=== PATIENT | female | born 1930 | race Caucasian/White ===

== ENCOUNTER 2017-08-29 18:11 | Emergency (ER) | payer OTHER ==
[2017-08-29 18:15] VITALS: BP 207/88; BMI 25.8
[2017-08-29] MEDS ORDERED: DILAUDID INJ IM ONE (18:15)
[2017-08-29] MEDS ORDERED: DILAUDID INJ ONE (18:18)
--- NOTE | 2017-08-29 18:20 | DR.HI ---
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 LARGE HEMATOMA NOTED TO LEFT BACK SIDE OF HEAD WITH TWO SMALL AREAS THAT ARE BLEEDING. PT. DENIES LOC. Chief Complaint Doctors Comments: Patient fell backward hitting the edge of the table. She did not have LOC,vomiting of dizziness - Source History Provided: Patient - Mode of arrival Mode of Arrival: Wheelchair - Timing Onset of Chief Complaint: 08/29/17 PMH - PMH Past Medical History: Yes Past Medical History: Arthritis, CHF, Depression, Dyslipidemia, Hypertension, Hypothyroidism, Kidney Stones Past Surgical History: Yes Surgical History: Abdominal Surgery, Appendectomy, Ortho Surgery - Family History History of Family Medical Conditions: Yes Family Medical History: Coronary Artery Disease, Sudden Cardiac , Hypertension - Social History Does patient currently use any type of tobacco product: No Have you used tobacco products in the last 12 months: No Type of Tobacco Use: None Does any household member use tobacco: No Alcohol Use: None Do you use any recreational Drugs:: No Lives With: Spouse Lives Where: Home - infectious screening In the last 2 months have you had wt loss of >10#?: NO Have you had fever, night sweats or hemotysis?: No Have you traveled outside the country in the last 6 months?: No Isolation: Standard ROS - Review of Systems Constitutional: No Symptoms Reported Eyes: No Symptoms Reported, See HPI, Eye Pain. negative: Blurred Vision, Discharge, Photophobia ENTM: No Symptoms Reported. negative: Ear Discharge, Hearing Loss, Nose Pain, Nose Discharge, Nose Congestion Respiratoy: No Symptoms Reported Cardiovascular: No Symptoms Reported Gastrointestinal/Abdominal: No Symptoms Reported Genitourinary: No Symptoms Reported Neurological: No Symptoms Reported Musculoskeletal: No Symptoms Reported, Other (scalp with abrasions occipital area) Integumentary: Bruises (left occipital area of scalp) Hematologic/Lymphatic: No Symptoms Reported Endocrine: No Symptoms Reported Psychiatric: No Symptoms Reported All Other Systems: Reviewed and Negative PE - Vital Signs Vitals: Temperature 97.8 F Pulse Rate 72 Respiratory Rate 18 Blood Pressure [Left Arm] 175/83 Blood Pressure [Right Arm] 181/79 Blood Pressure 207/88 O2 Sat by Pulse Oximetry 96 - General Limitations: No Limitations General Appearance: Alert, In No Apparent Distress - Head Head Exam: Other (left occipital acrasion x3) - Eyes Eye exam: Normal Appearance, PERRL, EOMI Eyelids: Normal Inspection: Bilateral Pupils: Regular, Round: Bilateral Sclera/Conjunctival: Normal Inspection: Bilateral - ENT ENT Exam: Normal Exam, Normal Oropharynx Nose Exam: Normal Nose Exam Mouth Exam: Normal Inspection - Neck Neck Exam: Normal Inspection, Full ROM. negative: Tenderness - Respiratory Respiratory Exam: Normal Lung Sounds Bilat Respiratory Exam: Bilateral Clear to Auscultation - Cardiovascular Cardiovascular Exam: Regular Rate, Normal Rhythm - Abdominal Exam Abdominal Exam: Normal Inspection Abdominal Tenderness: negative: RUQ, RLQ, LUQ, LLQ, Epigastrium, Suprapubic, Diffuse, Mild, Moderate, Severe, Other - Extremities Extremities Exam: Normal Inspection - Back Back Exam: Normal Inspection, Full ROM - Neurologic Neurological Exam: Alert, Oriented X3, CN II-XII Intact - Psychiatric Psychiatric Exam: Normal Affect, Normal Mood - Skin Skin Exam: Warm, Dry, Intact Type of Lesion: Abrasion (left occipital area) Distribution: Head Course - Reevaluation 1st: Improved ROR - XRAY XRAY Interpreted by: Radiologist (Brain CT: Changes of advancing chronological age w/o acute intracranial abnormality. Chronic appearing white matter neulogicical changes. Posttraumatic extracranial soft tissue laceration and hematoma involving [id number] region w/o underlying calvarial fracture) Procedures - Laceration/Wound Repair Left Occipital Wound Length (cm): 1 Wound's Depth, Shape: Superficial, Irregular Wound Explored: no foreign body removed Betadine Prep?: Yes Wound Debrided: minimal Wound Repaired With: Dermabond - Diagnosis Discharge Problem: Scalp abrasion Qualifiers: Encounter type: initial encounter Qualified Code(s): S00.01XA - Abrasion of scalp, initial encounter Left parietal scalp hematoma Qualifiers: Encounter type: initial encounter Qualified Code(s): S00.03XA - Contusion of scalp, initial encounter - Discharge Plan Condition: Stable - Follow ups/Referrals Follow ups/Referrals: Vu Jones [Primary Care Provider] - 3 days - Instructions
--- NOTE | 2017-08-29 18:52 | CT ---
History: Posterior head injury after fall. Study: CT brain without contrast. Comparison: None. Technique: Multiple axial images of the brain were obtained from the skull base to the vertex without administra tion of IV contrast. Findings: There is moderate ventricular, as well as, sulcal and cisternal prominence, in addition to , atherosclerotic changes of the proximal intracranial carotid and vertebral arteries, which is not o ut of proportion to the patient's chronological age. Scattered and confluent areas of periventricular , deep and subcortical white matter hypoattenuation are noted bilaterally likely reflecting ischemic microangiopathy in a patient this age. No acute intraparenchymal hemorrhage or mass can be identified . No extra-axial fluid collections are seen. No alteration in the attenuation of the brain parenchy ma can be identified to suggest acute or subacute ischemic change. There is a posterior scalp lacerat ion with partial visualization of an associated extracranial soft tissue hematoma in the left parieta l-occipital region. The calvarium is grossly intact. IMPRESSION: 1. Changes of advancing chronological age without acute intracranial abnormality. 2. Chronic appearing white matter changes. 3. Posttraumatic extracranial soft tissue laceration and hematoma involving the left parieto-occipita l region without underlying calvarial fracture. Reported By:
== END 2017-08-29 19:56 | disposition home or self-care (01) ==
LOC: ER 18:11
PROC: 0WQ0XZZ Repair Head, External Approach (ICD-10-PCS; principal; 2017-08-29)
DX: S00.01XA Abrasion of scalp, initial encounter (principal); S00.03XA Contusion of scalp, initial encounter; W01.198A Fall on same level from slipping, tripping and stumbling with subsequent striking against other object, initial encounter; Y92.9 Unspecified place or not applicable
CPT/HCPCS: 12001; 70450; 96372; 99282; 99283

== ENCOUNTER 2017-11-29 10:32 | Emergency (ER) | payer OTHER ==
[2017-11-29 10:37] VITALS: BP 131/60; BMI 25.5
--- NOTE | 2017-11-29 12:26 | DR.EXTPAIN ---
HPI - Time seen Time seen: 12:25 - PCP Primary Care Physician: rosie - Complaint/Symptoms Chief Complaint Doctor Comments: Patient presents with complaint of pain of her left foot which she injured on yesterday when at home. Today the foot is swollen and painful. Chief Complaint:: pt stated she fell inside her home yesterday and is having left foot pain. redness and edma noted - Source History Provided: Patient - Mode of arrival Mode of Arrival: Wheelchair - Timing Onset of Chief Complaint: 11/28/17 PMH - PMH Past Medical History: Yes Past Medical History: Arthritis, CHF, Depression, Dyslipidemia, Hypertension, Hypothyroidism, Kidney Stones Past Surgical History: Yes Surgical History: Abdominal Surgery, Appendectomy, Ortho Surgery - Family History History of Family Medical Conditions: Yes Family Medical History: Coronary Artery Disease, Sudden Cardiac , Hypertension - Social History Does patient currently use any type of tobacco product: No Have you used tobacco products in the last 12 months: No Type of Tobacco Use: None Does any household member use tobacco: No Alcohol Use: None Do you use any recreational Drugs:: No Lives With: Family Lives Where: Home - infectious screening In the last 2 months have you had wt loss of >10#?: NO Have you had fever, night sweats or hemotysis?: No Have you traveled outside the country in the last 6 months?: No Isolation: Standard ROS - Review of Systems Eyes: No Symptoms Reported ENTM: No Symptoms Reported Respiratoy: No Symptoms Reported Cardiovascular: No Symptoms Reported Gastrointestinal/Abdominal: No Symptoms Reported Genitourinary: No Symptoms Reported Neurological: No Symptoms Reported Musculoskeletal: Foot (left) Integumentary: No Symptoms Reported Hematologic/Lymphatic: No Symptoms Reported Endocrine: No Symptoms Reported Psychiatric: No Symptoms Reported All Other Systems: Reviewed and Negative PE - Vital Signs Vitals: Temperature 98.7 F Pulse Rate 70 Respiratory Rate 16 Blood Pressure [Left Arm] 175/83 Blood Pressure [Right Arm] 181/79 Blood Pressure 131/60 O2 Sat by Pulse Oximetry 98 - General Limitations: No Limitations General Appearance: Alert, In No Apparent Distress - Head Head Exam: Normal Inspection, Atraumatic - Eyes Eye exam: Normal Appearance, PERRL, EOMI - ENT ENT Exam: Normal Exam - Neck Neck Exam: Normal Inspection, Full ROM - Chest Chest Inspection: Normal Inspection - Respiratory Respiratory Exam: Normal Lung Sounds Bilat Respiratory Exam: Bilateral Clear to Auscultation - Cardiovascular Cardiovascular Exam: Regular Rate, Normal Rhythm - Abdominal Exam Abdominal Exam: Normal Inspection, Normal Bowel Sounds Abdominal Tenderness: negative: RUQ, RLQ, LUQ, LLQ, Epigastrium, Suprapubic, Diffuse, Mild, Moderate, Severe, Other - Extremities Extremities Exam: Normal Inspection, Full ROM - Upper Extremities Shoulder Exam: Normal Inspection, Full ROM Arm Exam: Normal Inspection Elbow Exam: Normal Inspection Forearm Exam: Normal Inspection Hand Exam: Normal Inspection Neuromotor Exam: Normal Exam Neurosensory Exam: Normal Exam Hand Tendon Exam: Flexor Digitorium Profundus (Location), Flexor Digitorium Superficialis (Location), Extensor Tendon (Location) Upper Ext. Vascular Exam: Capillary Refill - Lower Extremities Hip/Pelvis Exam: Normal Inspection, Full ROM Upper Leg Exam: Normal Inspection Knee Exam: Normal Inspection Lower Leg Exam: Normal Inspection Ankle Exam: Normal Inspection Foot/Toe Exam: Tenderness, Swelling, Dislocation (left foot) Neurovascular/Tendon Exam: Normal Capillary Refill Gait Exam: Not Tested/Not Observed - Back Back Exam: Normal Inspection, Full ROM - Neurological Neurological Exam: Alert, Oriented X3, CN II-XII Intact - Psychiatric Psychiatric Exam: Normal Affect, Normal Mood - Skin Skin Exam: Warm, Dry, Intact Course - Reevaluation 1st: Unchanged ROR - XRAY XRAY Interpreted by: Radiologist ([place] foot: Degenerative change in the left foot, no acute bony abnormalities are identified.) - Diagnosis Discharge Problem: Degenerative change in left foot Sprain of left foot Qualifiers: Encounter type: initial encounter Qualified Code(s): S93.602A - Unspecified sprain of left foot, initial encounter - Discharge Plan Condition: Stable - Follow ups/Referrals Follow ups/Referrals: Vu Jones [Primary Care Provider] - 3 days - Instructions
--- NOTE | 2017-11-29 13:21 | RAD ---
HISTORY: Status post fall. Bruising and swelling. Study: Left foot: Three views Comparison: None Findings: Tarsal, metatarsal and phalangeal alignment is normal. Fzad-ja-drsqtehu osteopenia is present. Mild degenerative change present in the 1st metatarsal-phalangeal joint. Bunion formation is noted. An os navicularis and os cuboideum is present. Mild enthesopathy is noted at the Achilles tendon insert ion. Minimal degenerative changes present in the midfoot. The base of the 5th metatarsal is intact. IMPRESSION: 1. Degenerative change in the left foot as described above. 2. No acute bony abnormalities are identified. Reported By:
== END 2017-11-29 14:03 | disposition home or self-care (01) ==
LOC: ER 10:43
DX: S93.602A Unspecified sprain of left foot, initial encounter (principal); M19.072 Primary osteoarthritis, left ankle and foot; W19.XXXA Unspecified fall, initial encounter; Y92.009 Unspecified place in unspecified non-institutional (private) residence as the place of occurrence of the external cause
CPT/HCPCS: 73630; 99282; 99283

== ENCOUNTER 2018-03-10 09:38 | Inpatient (IN) ==
[2018-03-10 09:54] VITALS: BMI 28.2
[2018-03-10 10:35] LABS: BASOPHILS % (AUTO) 0.3 % (0.2-1.0); EOSINOPHILS # (AUTO) 0.3 x10^3/uL (0.0-0.2); EOSINOPHILS % (AUTO) 2.3 % (0.9-2.9); HEMATOCRIT 27.4 % (36.0-47.0); HEMOGLOBIN 9.2 g/dL (12.0-16.0); LYMPHOCYTES # (AUTO) 1.1 X10^3/uL (1.3-2.9); LYMPHOCYTES % (AUTO) 9.4 % (21.0-51.0); MEAN CORPUSCULAR HEMOGLOBIN 30.9 pg (27.0-34.0); MEAN CORPUSCULAR HGB CONC 33.5 g/dL (33.0-35.0); MEAN CORPUSCULAR VOLUME 92.1 fL (80.0-100.0); MEAN PLATELET VOLUME 6.7 fL (7.4-11.0); MONOCYTES # (AUTO) 0.8 x10^3/uL (0.3-0.8); NEUTROPHILS # (AUTO) 9.8 x10^3/uL (2.2-4.8); PLATELET COUNT 448 X10^3/uL (150.0-450.0); RED BLOOD COUNT 2.98 X10^6/uL (3.5-5.4); RED CELL DISTRIBUTION WIDTH 13.9 % (11.6-16.5); WHITE BLOOD COUNT 12.1 X10^3/uL (3.6-10.0)
[2018-03-10 10:46] LABS: ALBUMIN 2.3 g/dL (3.4-5.0); CALCIUM 8.7 mg/dL (8.5-10.1); CARBON DIOXIDE 25.1 mmol/L (21-32); COR CA(FOR HYPOALB) 10.1 mg/dL (8.5-10.1); CREATININE 1.96 mg/dL (0.55-1.02); TOTAL PROTEIN 6.8 g/dL (6.4-8.2)
--- NOTE | 2018-03-10 11:14 | ED.ABDFE ---
HPI Time Seen Time seen: 10:10 PCP Primary Care Physician: rosie Rapp Doctors Chief Complaint Comments: Patient presents with complaint of falling more frequently than before and that her stomach in swollen more than usual. She had a peritoneal tap last week and they will get the results later on today. Chief Complaint:: pts abd is swollen and distended more so today per family than the past week. pt has a appointment with dr gann today at 130 today to consult for possible colon cancer. Source History Provided: Patient Mode of arrival Mode of Arrival: EMS Timing Onset of Chief Complaint: 03/09/18 PMH PMH Past Medical History: Yes Past Medical History: Arthritis, CHF, Depression, Dyslipidemia, Hypertension, Hypothyroidism and Kidney Stones Past Surgical History: Yes Surgical History: Abdominal Surgery, Appendectomy and Ortho Surgery Family History History of Family Medical Conditions: Yes Family Medical History: Coronary Artery Disease, Sudden Cardiac and Hypertension Social History Does patient currently use any type of tobacco product: No Have you used tobacco products in the last 12 months: No Type of Tobacco Use: None Does any household member use tobacco: No Alcohol Use: None Do you use any recreational Drugs:: No Lives With: Family Lives Where: Home infectious screening In the last 2 months have you had wt loss of >10#?: NO Have you had fever, night sweats or hemotysis?: No Have you traveled outside the country in the last 6 months?: No Isolation: Standard PE Vital Signs Vitals: Temperature 98.7 F Pulse Rate 94 Respiratory Rate 16 Blood Pressure [Left Arm] 170/76 Blood Pressure [Right Arm] 184/71 Blood Pressure 165/95 O2 Sat by Pulse Oximetry 93 ROR Labs Reviewed Result Diagrams: 03/10/18 10:27 03/10/18 10:27 Laboratory: WBC 12.1 X10^3/uL (3.6-10.0) H 03/10/18 10: RBC 2.98 X10^6/uL (3.5-5.4) L 03/10/18 10:27 Hgb 9.2 g/dL (12.0-16.0) L 03/10/18 10:27 Hct 27.4 % (36.0-47.0) L 03/10/18 10:27 MCV 92.1 fL (80.0-100.0) 03/10/18 10: MCH 30.9 pg (27.0-34.0) 03/10/18 10:27 MCHC 33.5 g/dL (33.0-35.0) 03/10/18 10:27 RDW 13.9 % (11.6-16.5) 03/10/18 10:27 Plt Count 448 X10^3/uL (150.0-450.0) 03/10/18 10:27 MPV 6.7 fL (7.4-11.0) L 03/10/18 10:27 Neut % (Auto) 81.0 % (42.0-75.0) H 03/10/18 10:27 Lymph % (Auto) 9.4 % (21.0-51.0) L 03/10/18 10:27 [place] % (Auto) 7.0 % (0.0-13.0) 03/10/18 10: Eos % (Auto) 2.3 % (0.9-2.9) 03/10/18 10:27 Baso % (Auto) 0.3 % (0.2-1.0) 03/10/18 10:27 Neut # (Auto) 9.8 x10^3/uL (2.2-4.8) H 03/10/18 10:27 Lymph # (Auto) 1.1 X10^3/uL (1.3-2.9) L 03/10/18 10:27 [place] # (Auto) 0.8 x10^3/uL (0.3-0.8) 03/10/18 10:27 Eos # (Auto) 0.3 x10^3/uL (0.0-0.2) H 03/10/18 10:27 Baso # (Auto) 0.0 X10^3/uL (0.0-0.1) 03/10/18 10:27 Absolute Nucleated RBC 0.0 /100WBC 03/10/18 10:27 Sodium 136 mmol/L (136-145) 03/10/18 10:27 Corrected Sodium 137 mmol/L (136-145) 03/10/18 10:27 Potassium 4.9 mmol/L (3.5-5.1) 03/10/18 10:27 Chloride 104 mmol/L (98-107) 03/10/18 10:27 Carbon Dioxide 25.1 mmol/L (21-32) 03/10/18 10:27 BUN 31 mg/dL (7-18) H 03/10/18 10:27 Creatinine 1.96 mg/dL (0.55-1.02) H 03/10/18 10:27 Est GFR (MDRD) Af Amer 31 (>60) L 03/10/18 10:27 Est GFR (MDRD) Non-Af 26 (>60) L 03/10/18 10:27 Glucose 128 mg/dL (65-99) H 03/10/18 10:27 Calcium 8.7 mg/dL (8.5-10.1) 03/10/18 10:27 Corrected Calcium 10.1 mg/dL (8.5-10.1) 03/10/18 10:27 Total Bilirubin 0.10 mg/dL (0.2-1.0) L 03/10/18 10:27 AST 45 Units/L (15-37) H 03/10/18 10:27 ALT 19 Units/L (12-78) 03/10/18 10:27 Alkaline Phosphatase 58 Units/L (46-116) 03/10/18 10:27 C-Reactive Protein 109.10 mg/L (0-3.0) H 03/10/18 10:27 Total Protein 6.8 g/dL (6.4-8.2) 03/10/18 10:27 Albumin 2.3 g/dL (3.4-5.0) L 03/10/18 10:27 Globulin 4.5 g/dL (2.5-4.5) 03/10/18 10:27 Albumin/Globulin Ratio 0.5 Ratio (1.1-2.1) L 03/10/18 10:27
[2018-03-10] MEDS: NS 1000 ML 1,000 ML IV SCH (11:46)
--- NOTE | 2018-03-10 12:58 | CT ---
History: Frequent falls and altered mental status Study: CT head without contrast. Sagittal and coronal reformations were provided. Comparison: February 10, 2018 Findings: There is no interval change. The ventricles and sulci are [id number] enlarged witho ut mass effect. There is moderate to severe periventricular white-matter low attenuation diffusely. T here is no intracranial hemorrhage or mass or edema. There is no subdural collection of fluid. The pa ranasal sinuses are clear. There is an intact cranium. 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 No acute disease is demonstr ated. Reported By:
--- NOTE | 2018-03-10 13:22 | ED.ABDFE ---
HPI Time Seen Time seen: 10:38 PCP Primary Care Physician: rosie Complaint Chief Complaint:: pts abd is swollen and distended more so today per family than the past week. pt has a appointment with dr gann today at 130 today to consult for possible colon cancer. Source History Provided: Patient Mode of arrival Mode of Arrival: EMS Timing Onset of Chief Complaint: 03/09/18 PMH PMH Past Medical History: Yes Past Medical History: Arthritis, CHF, Depression, Dyslipidemia, Hypertension, Hypothyroidism and Kidney Stones Past Surgical History: Yes Surgical History: Abdominal Surgery, Appendectomy and Ortho Surgery Family History History of Family Medical Conditions: Yes Family Medical History: Coronary Artery Disease, Sudden Cardiac and Hypertension Social History Does patient currently use any type of tobacco product: No Have you used tobacco products in the last 12 months: No Type of Tobacco Use: None Does any household member use tobacco: No Alcohol Use: None Do you use any recreational Drugs:: No Lives With: Family Lives Where: Home infectious screening In the last 2 months have you had wt loss of >10#?: NO Have you had fever, night sweats or hemotysis?: No Have you traveled outside the country in the last 6 months?: No Isolation: Standard ROS Review of Systems Constitutional: See HPI Eyes: No Symptoms Reported ENTM: No Symptoms Reported Respiratoy: See HPI Gastrointestinal/Abdominal: Abdominal Pain (increased in fluid content) Neurological: Weakness Musculoskeletal: See HPI Integumentary: No Symptoms Reported PE Vital Signs Vitals: Temperature 97.9 F Pulse Rate [Left Brachial] 84 Pulse Rate 94 Respiratory Rate 18 Blood Pressure [Left Arm] 156/70 Blood Pressure [Right Arm] 184/71 Blood Pressure 165/95 O2 Sat by Pulse Oximetry 93 General Limitations: Language Barrier and Altered Mental Status General Appearance: In No Apparent Distress Head Head Exam: Atraumatic and Normocephalic Eyes Eye exam: Normal Appearance and EOMI ENT ENT Exam: Mucous Membranes Dry Neck Neck Exam: Normal Inspection and Full ROM Chest Chest Inspection: Normal Inspection and Symmetric Chest Wall Rise Respiratory Respiratory Exam: Normal Lung Sounds Bilat Respiratory Exam: Bilateral: Clear to Auscultation Cardiovascular Cardiovascular Exam: Regular Rate and Normal Rhythm Abdominal Exam Abdominal Exam: Normal Inspection, Normal Bowel Sounds, Distention and Hypoactive Bowel Sounds Abdominal Tenderness: Mild Rectal Rectal Exam: Deferred Extremeties Extremities Exam: Normal Inspection : Speculum Exam (Female): Deferred : Bimanual Exam (female): Deferred Neurologic Neurological Exam: Alert Psychiatric Psychiatric Exam: Depressed Skin Skin Exam: Warm, Dry, Intact and Normal Color COURSE Reevaluation 1st: Unchanged Consultation Called: 13:00 Consultation Comments: Dr Jones agreed to admit for further evaluation and treatment ROR Labs Reviewed Result Diagrams: 03/11/18 05:17 03/11/18 05:17 Laboratory: WBC 11.2 X10^3/uL (3.6-10.0) H 03/11/18 05:17 RBC 2.95 X10^6/uL (3.5-5.4) L 03/11/18 05:17 Hgb 9.2 g/dL (12.0-16.0) L 03/11/18 05:17 Hct 27.1 % (36.0-47.0) L 03/11/18 05:17 MCV 92.0 fL (80.0-100.0) 03/11/18 05:17 MCH 31.3 pg (27.0-34.0) 03/11/18 05:17 MCHC 34.0 g/dL (33.0-35.0) 03/11/18 05:17 RDW 13.8 % (11.6-16.5) 03/11/18 05:17 Plt Count 462 X10^3/uL (150.0-450.0) H 03/11/18 05:17 MPV 7.3 fL (7.4-11.0) L 03/11/18 05:17 Neut % (Auto) 74.5 % (42.0-75.0) 03/11/18 05:17 Lymph % (Auto) 12.6 % (21.0-51.0) L 03/11/18 05:17 [place] % (Auto) 9.3 % (0.0-13.0) 03/11/18 05:17 Eos % (Auto) 2.8 % (0.9-2.9) 03/11/18 05:17 Baso % (Auto) 0.8 % (0.2-1.0) 03/11/18 05:17 Neut # (Auto) 8.3 x10^3/uL (2.2-4.8) H 03/11/18 05:17 Lymph # (Auto) 1.4 X10^3/uL (1.3-2.9) 03/11/18 05:17 [place] # (Auto) 1.0 x10^3/uL (0.3-0.8) H 03/11/18 05:17 Eos # (Auto) 0.3 x10^3/uL (0.0-0.2) H 03/11/18 05:17 Baso # (Auto) 0.1 X10^3/uL (0.0-0.1) 03/11/18 05:17 Absolute Nucleated RBC 0.1 /100WBC 03/11/18 05:17 D-Dimer 4220 ng/mL (0-400) H* 03/10/18 10:27 Sodium 137 mmol/L (136-145) 03/11/18 05:17 Corrected Sodium TNP 03/11/18 05:17 Potassium 4.6 mmol/L (3.5-5.1) 03/11/18 05:17 Chloride 105 mmol/L (98-107) 03/11/18 05:17 Carbon Dioxide 25.7 mmol/L (21-32) 03/11/18 05:17 BUN 25 mg/dL (7-18) H 03/11/18 05:17 Creatinine 1.43 mg/dL (0.55-1.02) H 03/11/18 05:17 Est GFR (MDRD) Af Amer 45 (>60) L 03/11/18 05:17 Est GFR (MDRD) Non-Af 37 (>60) L 03/11/18 05:17 Glucose 104 mg/dL (65-99) H 03/11/18 05:17 Calcium 8.2 mg/dL (8.5-10.1) L 03/11/18 05:17 Corrected Calcium 9.8 mg/dL (8.5-10.1) 03/11/18 05:17 Total Bilirubin 0.10 mg/dL (0.2-1.0) L 03/11/18 05:17 AST 40 Units/L (15-37) H 03/11/18 05:17 ALT 17 Units/L (12-78) 03/11/18 05:17 Alkaline Phosphatase 55 Units/L (46-116) 03/11/18 05:17 C-Reactive Protein 109.10 mg/L (0-3.0) H 03/10/18 10:27 Total Protein 6.2 g/dL (6.4-8.2) L 03/11/18 05:17 Albumin 2.0 g/dL (3.4-5.0) L 03/11/18 05:17 Globulin 4.2 g/dL (2.5-4.5) 03/11/18 05:17 Albumin/Globulin Ratio 0.5 Ratio (1.1-2.1) L 03/11/18 05:17 XRAY XRAY Findings: CT Brain: Unchanged atrophy and periventricular white matter small vessel Diagnosis Discharge Problem: Dehydration
[2018-03-10] MEDS ORDERED: NS 1000 ML 1,000 ML IV SCH (14:37)
[2018-03-10] MEDS ORDERED: MAXZIDE 37.5/25 MG PO PRN (14:37)
[2018-03-10] MEDS ORDERED: ULTRAM PO PRN (14:37)
--- NOTE | 2018-03-10 19:51 | CT ---
CT abdomen and pelvis without contrast Indication: Abdominal distention and abdominal pain Comparison: 03/02/2018 Technique: Helical images through the abdomen and pelvis without contrast. Coronal and sagittal refor mats provided. Comparison: 03/02/2018 CT Findings: There is cardiomegaly coronary artery calcifications. There is scarring in the lung bases w ith peribronchial thickening and small effusions. Review of bone windows shows spine and pelvis degen erative change without destructive osseous lesion. Abdomen: Liver appears cirrhotic. The gallbladder is collapsed. The spleen, adrenal glands, pancreas and kidneys show no acute abnormality, within the limits of a noncontrast study. Diffuse scattered va scular calcifications noted. Stomach appears normal. Noninflamed colonic diverticulum noted. Appendix appears absent with clips ne ar the cecum. There is moderate amount of ascites in the peritoneal cavity in the pelvis and abdomen. The hyperdense implants suspected along the undersurface of the right hemidiaphragm, for example see axial image 25. Partially calcified right lower quadrant lymphadenopathy noted. This is seen on axia l image 56. The coronal image 26 shows layering nodularity along the dependent fluid in the omentum, and along th e left pericolic gutter on coronal images 20 through 25. Pelvis: The urinary bladder and rectum are normal. Uterus and adnexa show no convincing acute abnorma lity Impression: 1. Worsening ascites with extensive peritoneal implants diffusely, notably along the diaphragm, with right lower quadrant and mid mesenteric adenopathy. 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 Oncology follow-up recommended. 2. No other acute abnormality. Calcified lymph nodes a right lower quadrant, similar to the prior. 3. Vascular plaque, bilateral effusions, cardiomegaly and chronic lung changes THE AVAILABILITY OF THE REPORT AND FINDINGS WERE COMMUNICATED TO Dr. Delgado by Dr. Calix on 03/10/20 18 Time called 7:51 p.m. Reported By:
[2018-03-10] MEDS ORDERED: ANTIVERT TAB 25 MG PO SCH (21:00)
[2018-03-10] MEDS ORDERED: ATIVAN TAB 1 MG PO SCH (21:00)
[2018-03-10] MEDS: LYRICA CAP 50 MG PO SCH (21:14)
[2018-03-10] MEDS: ZANTAC PO SCH (21:14)
[2018-03-10] MEDS: NYSTATIN POWDER TOP SCH (21:15)
[2018-03-10] MEDS: BUTT CREAM (COMPOUND) TOP SCH (21:15)
[2018-03-10] MEDS: KLONOPIN TAB 0.5 MG PO SCH (21:15)
[2018-03-10] MEDS: COREG TAB 6.25 MG PO SCH (21:15)
[2018-03-11] MEDS: NS 1000 ML 1,000 ML IV SCH ×2 (05:50→14:02)
[2018-03-11 06:37] LABS: BASOPHILS # (AUTO) 0.1 X10^3/uL (0.0-0.1); BASOPHILS % (AUTO) 0.8 % (0.2-1.0); EOSINOPHILS # (AUTO) 0.3 x10^3/uL (0.0-0.2); EOSINOPHILS % (AUTO) 2.8 % (0.9-2.9); HEMATOCRIT 27.1 % (36.0-47.0); HEMOGLOBIN 9.2 g/dL (12.0-16.0); LYMPHOCYTES # (AUTO) 1.4 X10^3/uL (1.3-2.9); LYMPHOCYTES % (AUTO) 12.6 % (21.0-51.0); MEAN CORPUSCULAR HEMOGLOBIN 31.3 pg (27.0-34.0); MEAN PLATELET VOLUME 7.3 fL (7.4-11.0); MONOCYTES % (AUTO) 9.3 % (0.0-13.0); NEUTROPHILS # (AUTO) 8.3 x10^3/uL (2.2-4.8); NEUTROPHILS % (AUTO) 74.5 % (42.0-75.0); PLATELET COUNT 462 X10^3/uL (150.0-450.0); RED BLOOD COUNT 2.95 X10^6/uL (3.5-5.4); RED CELL DISTRIBUTION WIDTH 13.8 % (11.6-16.5); WHITE BLOOD COUNT 11.2 X10^3/uL (3.6-10.0)
[2018-03-11 06:51] LABS: ALANINE AMINOTRANSFERASE 17 Units/L (12-78); ALKALINE PHOSPHATASE 55 Units/L (46-116); ASPARTATE AMINO TRANSFERASE 40 Units/L (15-37); BLOOD UREA NITROGEN 25 mg/dL (7-18); CALCIUM 8.2 mg/dL (8.5-10.1); CARBON DIOXIDE 25.7 mmol/L (21-32); CHLORIDE 105 mmol/L (98-107); COR CA(FOR HYPOALB) 9.8 mg/dL (8.5-10.1); CREATININE 1.43 mg/dL (0.55-1.02); SODIUM 137 mmol/L (136-145); TOTAL PROTEIN 6.2 g/dL (6.4-8.2); eGFR NON BLACK RACES 37 (>60)
--- NOTE | 2018-03-11 08:38 | DR.PROGNOT ---
Hospital Progress Notes - Progress Note for Day of: Progress Note Date: 03/11/18 - Chief Complaint Chief Complaint: Pt was seen last night with abdominal distention , nausea , poor oral intake. and weakness .. no vomiting now . abdominal CT was D/W the radiologist , it is strongly suspicious for carcinomatosis although ascitis was negative for malignancy . - Past Medical Family Social History Past Med/Fam/Surg Hx: No changes since H&P Allergies: Allergies aspirin Allergy (Verified 03/10/18 14:19) fluoxetine [From Prozac] Allergy (Verified 03/10/18 14:37) tramadol Allergy (Verified 03/10/18 14:19) FAMILY DOES NOT WANT PT. TO HAVE. - Review Of Systems ROS: No change since H&P - Vital Signs Vital Signs: Temperature 98.4 F Pulse Rate [Left Brachial] 83 Pulse Rate 94 Respiratory Rate 22 Blood Pressure [Left Arm] 145/63 Blood Pressure [Right Arm] 184/71 Blood Pressure 165/95 O2 Sat by Pulse Oximetry 94 - Physical Exam Oriented: Normal Eyes: Normal Ear: Normal Nose: Normal Throat: Normal Respiratory: Right, Left, Diminished Cardiovascular: Normal GI:Auscultation: Decreased GI:Palpation: Other (distended abdomen , dullness lower abdomen and tympany upper abdomen with moderate tenderness.) Speech Pattern: Unclear, Delayed - Laboratory and Diagnostics Result Diagrams: 03/11/18 05:17 03/11/18 05:17 Labs: Laboratory WBC 11.2 X10^3/uL (3.6-10.0) H 03/11/18 05:17 RBC 2.95 X10^6/uL (3.5-5.4) L 03/11/18 05:17 Hgb 9.2 g/dL (12.0-16.0) L 03/11/18 05:17 Hct 27.1 % (36.0-47.0) L 03/11/18 05:17 MCV 92.0 fL (80.0-100.0) 03/11/18 05:17 MCH 31.3 pg (27.0-34.0) 03/11/18 05:17 MCHC 34.0 g/dL (33.0-35.0) 03/11/18 05:17 RDW 13.8 % (11.6-16.5) 03/11/18 05:17 Plt Count 462 X10^3/uL (150.0-450.0) H 03/11/18 05:17 MPV 7.3 fL (7.4-11.0) L 03/11/18 05:17 Neut % (Auto) 74.5 % (42.0-75.0) 03/11/18 05:17 Lymph % (Auto) 12.6 % (21.0-51.0) L 03/11/18 05:17 [place] % (Auto) 9.3 % (0.0-13.0) 03/11/18 05:17 Eos % (Auto) 2.8 % (0.9-2.9) 03/11/18 05:17 Baso % (Auto) 0.8 % (0.2-1.0) 03/11/18 05:17 Neut # (Auto) 8.3 x10^3/uL (2.2-4.8) H 03/11/18 05:17 Lymph # (Auto) 1.4 X10^3/uL (1.3-2.9) 03/11/18 05:17 [place] # (Auto) 1.0 x10^3/uL (0.3-0.8) H 03/11/18 05:17 Eos # (Auto) 0.3 x10^3/uL (0.0-0.2) H 03/11/18 05:17 Baso # (Auto) 0.1 X10^3/uL (0.0-0.1) 03/11/18 05:17 Absolute Nucleated RBC 0.1 /100WBC 03/11/18 05:17 D-Dimer 4220 ng/mL (0-400) H* 03/10/18 10:27 Sodium 137 mmol/L (136-145) 03/11/18 05:17 Corrected Sodium TNP 03/11/18 05:17 Potassium 4.6 mmol/L (3.5-5.1) 03/11/18 05:17 Chloride 105 mmol/L (98-107) 03/11/18 05:17 Carbon Dioxide 25.7 mmol/L (21-32) 03/11/18 05:17 BUN 25 mg/dL (7-18) H 03/11/18 05:17 Creatinine 1.43 mg/dL (0.55-1.02) H 03/11/18 05:17 Est GFR (MDRD) Af Amer 45 (>60) L 03/11/18 05:17 Est GFR (MDRD) Non-Af 37 (>60) L 03/11/18 05:17 Glucose 104 mg/dL (65-99) H 03/11/18 05:17 Calcium 8.2 mg/dL (8.5-10.1) L 03/11/18 05:17 Corrected Calcium 9.8 mg/dL (8.5-10.1) 03/11/18 05:17 Total Bilirubin 0.10 mg/dL (0.2-1.0) L 03/11/18 05:17 AST 40 Units/L (15-37) H 03/11/18 05:17 ALT 17 Units/L (12-78) 03/11/18 05:17 Alkaline Phosphatase 55 Units/L (46-116) 03/11/18 05:17 C-Reactive Protein 109.10 mg/L (0-3.0) H 03/10/18 10:27 Total Protein 6.2 g/dL (6.4-8.2) L 03/11/18 05:17 Albumin 2.0 g/dL (3.4-5.0) L 03/11/18 05:17 Globulin 4.2 g/dL (2.5-4.5) 03/11/18 05:17 Albumin/Globulin Ratio 0.5 Ratio (1.1-2.1) L 03/11/18 05:17 - Assessment and Plan 1: 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 partial bowel obstruction . will try to repeat paracentesis later on with US guidance . - Problem Patient Problems: Patient Problems Dehydration (Acute) E86.0
[2018-03-11] MEDS ORDERED: ZOLOFT PO ONE (08:47)
[2018-03-11] MEDS: LYRICA CAP 50 MG PO SCH ×2 (09:00→20:20)
[2018-03-11] MEDS ORDERED: PANTOPRAZOLE 40 MG PO SCH (09:00)
[2018-03-11] MEDS: FOLTX PO SCH (09:00)
[2018-03-11] MEDS: CRESTOR TAB 10 MG PO SCH (09:00)
[2018-03-11] MEDS ORDERED: TOPROL XL PO SCH (09:00)
[2018-03-11] MEDS ORDERED: SINEquan PO SCH (09:00)
[2018-03-11] MEDS: ALDACTONE TAB 25 MG PO SCH (09:00)
[2018-03-11] MEDS: PriLOSEC PO SCH (09:01)
[2018-03-11] MEDS: COREG TAB 6.25 MG PO SCH ×2 (09:02→20:19)
[2018-03-11] MEDS: DIOVAN TAB 160 MG PO SCH (09:02)
[2018-03-11] MEDS: EVISTA PO SCH (09:02)
[2018-03-11] MEDS: NYSTATIN POWDER TOP SCH ×2 (09:03→20:20)
[2018-03-11] MEDS: BUTT CREAM (COMPOUND) TOP SCH ×4 (09:03→20:20)
[2018-03-11] MEDS: ZOLOFT PO SCH (09:03)
[2018-03-11] MEDS: SYNTHROID 50 mcg TAB PO SCH (09:05)
[2018-03-11] MEDS ORDERED: ALFUZOSIN 10 MG PO SCH (09:30)
[2018-03-11] MEDS: SINGULAIR TAB 10 MG PO SCH (10:51)
--- NOTE | 2018-03-11 15:08 | US ---
History: Evaluate ascites for possible paracentesis. Study: Targeted ultrasound of the abdomen. Comparison: CT abdomen/pelvis dated March 10, 2018. Technique: Multiple loaiza scale images of the abdomen. Findings: Targeted ultrasound of all 4 abdominal quadrants demonstrate moderate amounts of abdominal ascites. Impression: Moderate amount of abdominal ascites. Reported By:
--- NOTE | 2018-03-11 15:15 | RAD ---
HISTORY: Elevated D-dimer. Comparison with V/Q scan. Study: Portable chest. Comparison: Chest x-ray dated February 08, 2018. Findings: The trachea is midline. The cardiac silhouette is unremarkable. Right basilar scarring versus atelec tasis. No obvious focal consolidation, pleural effusion, or pneumothorax. The bony thorax is unrema rkable. IMPRESSION: No acute cardiopulmonary disease. Reported By:
--- NOTE | 2018-03-11 15:58 | NM ---
HISTORY: Elevated D-dimer Study: Nuclear Medicine Ventilation Perfusion Study Comparison: Radiograph 03/11/2018, CT 03/10/2018 Technique: After the administration of 5.5 mCi of technetium 99m MAA followed by inhalation of 30 mCi of technetium 99m DTPA, anterior, posterior, and lateral perfusion and ventilation images were submi tted. Findings: Evaluation of perfusion physiology demonstrates no significant segmental or subsegmental defect to pittman ggest pulmonary embolus. There is heterogeneous attenuation at the lung bases corresponding to atelec tasis and small bilateral effusions. Mild central clumping of DTPA is present that can be seen with C OPD/airways disease. No ventilation defects are seen with mild matched attenuation at the lung bases when compared to the perfusion images related to atelectasis and small effusions. IMPRESSION: 1. Negative V/Q scan. Reported By:
[2018-03-11] MEDS: LOVENOX INJ 40 MG SYR SC SCH (17:17)
[2018-03-11] MEDS: ZOFRAN INJ 4 MG VIAL IVP PRN (17:47)
--- NOTE | 2018-03-11 19:31 | DR.H&P ---
H&P - History & Physical for Day of: H&P Date: 03/10/18 - Chief Complaint Chief Complaint: abdominal pain, distention, ams - History of Present Illness History of Present Illness: IS A 88 YEAR OLD PATIENT OF OURS WHO PRESENTED TO THE EMERGENCY ROOM WITH COMPLAINTS OF ABDOMINAL PAIN, SWELLING, AND DISTENTION. FAMILY REPORTS THAT SWELLING IS WORSE TODAY THAN IT HAS BEEN. THEY REPORT THAT SHE HAD A PARACENTESIS WITH DRAINAGE OF ASCITES EARLIER IN THE MONTH BY . THEY WERE SCHEDULED TO FOLLOW-UP WITH HIM TODAY. FAMILY ALSO REPORTS THAT PATIENT HAS HAD INCREASED CONFUSION. SHE HAS A HISTORY OF RIGHT COLON CANCER WITH A COLECTOMY DONE IN 2016. ON ARRIVAL, VITALS WERE 98.7- 94-16-93%-165/95. LABS WERE OBTAINED. ABNORMAL LAB VALUES INCLUDE THE FOLLOWING : WBC 12.1, RBC 2.98, HGB 9.2, HCT 27.4, D-DIMER 4220, BUN 31, CREATININE 1.96, GLUCOSE 128, TOTAL BILI 0.10, AST 45, CRP 109.10, ALBUMIN 2.3. AN ABDOMEN/ PELVIS CT WITHOUT CONTRAST REVEALED: Worsening ascites with extensive peritoneal implants diffusely, notably along the diaphragm, with right lower quadrant and mid mesenteric adenopathy. This is most compatible with recurrent colon cancer. Oncology follow-up recommended. No other acute abnormality. Calcified lymph nodes a right lower quadrant, similar to the prior. Vascular plaque, bilateral effusions, cardiomegaly and chronic lung changes. Patient was admitted for further evaluation and treatment of dehydration, ascites, and rule out pulmonary embolus. We plan to obtain a VQ scan in the morning. She was started on normal saline at 80ml/hr. Otherwise, we will follow-up with am labs and continue to monitor patient. - Past Medical History Past Medical History: Hypertension, Dyslipidemia, Depression, Hypothyroidism, Arthritis, Kidney Stones, CHF - Past Surgical History Surgical History: Abdominal Surgery, Appendectomy, Ortho Surgery Additional Surgical History: Pelvic Biopsy for Cancer - Family History Family Medical History: Coronary Artery Disease, Sudden Cardiac , Hypertension - Social History Does patient currently use any type of tobacco product: No Have you used tobacco products in the last 12 months: No Type of Tobacco Use: None Does any household member use tobacco: No Alcohol Use: None - Medications Home Medications: aspirin Allergy (Verified 03/10/18 14:19) fluoxetine [From Prozac] Allergy (Verified 03/10/18 14:37) tramadol Allergy (Verified 03/10/18 14:19) CONTINUE taking the following medications folic acid-vit B6-vit B12 [[place]] 1 tab PO DAILY 03/10/18 [History] levothyroxine [Synthroid] 50 mcg PO DAILY 03/10/18 [History] meclizine 25 mg PO HS 03/10/18 [History] metoprolol succinate [Toprol XL] 12.5 mg PO DAILY 03/10/18 [History] montelukast 10 mg PO DAILY 03/10/18 [History] omeprazole 40 mg PO DAILY 03/10/18 [History] pantoprazole [Protonix] 40 mg PO BID 03/10/18 [History] pregabalin [Lyrica] 75 mg PO BID 03/10/18 [History] raloxifene 60 mg PO DAILY 03/10/18 [History] ranitidine HCl 75 mg PO BID 03/10/18 [History] spironolactone 25 mg PO DAILY 03/10/18 [History] triamterene-hydrochlorothiazid 1 cap PO DAILY PRN 03/10/18 [History] - Review of Systems Constitutional: Weakness Eyes: No Symptoms Reported ENT: No Symptoms Reported Respiratory: Shortness of Breath Cardiovascular: No Symptoms Reported Gastrointestinal: See HPI, Abdominal Pain Genitourinary: No Symptoms Reported Musculoskeletal: Back Pain Skin: Bruising Neurological: Weakness, Confusion - Physical Exam Vital Signs: Temperature 98.7 F Pulse Rate [Left Brachial] 91 Pulse Rate 94 Respiratory Rate 20 Blood Pressure [Left Arm] 178/70 Blood Pressure [Right Arm] 184/71 Blood Pressure 165/95 O2 Sat by Pulse Oximetry 94 Oriented: Normal Eyes: Normal Ear: Normal Nose: Normal Throat: Normal Respiratory: Diminished Throughout Cardiovascular: negative: S3, S4, Murmur : Normal Auscultation: Bowel Sounds: Normal Palpation: Normal Tenderness: Diffuse, Moderate. negative: Rebound, Guarding, Rigidity Skin: Normal Musculoskeletal: Back:Thoracic, Back:Lumbar, Tender Psychiatric: Normal Mood Description: Calm Affect: Normal Speech Pattern: Clear - Assessment/Plan (1) Ascites Qualifiers: Ascites type: malignant Qualified Code(s): R18.0 - Malignant ascites Status: Acute Plan: surgical consult, continue to monitor (2) Dehydration Status: Acute Plan: normal saline at 80ml/hr, continue to monitor - Allergies Allergies/Adverse Reactions: Allergies Allergy/AdvReac Type Severity Reaction Status Date / Time aspirin Allergy Verified 03/10/18 14:19 fluoxetine [From Prozac] Allergy Verified 03/10/18 14:37 tramadol Allergy Verified 03/10/18 14:19
[2018-03-11] MEDS: KLONOPIN TAB 0.5 MG PO SCH (20:19)
[2018-03-11] MEDS: ZANTAC PO SCH (20:19)
[2018-03-12 05:18] LABS: BASOPHILS # (AUTO) 0.1 X10^3/uL (0.0-0.1); BASOPHILS % (AUTO) 0.5 % (0.2-1.0); EOSINOPHILS # (AUTO) 0.3 x10^3/uL (0.0-0.2); EOSINOPHILS % (AUTO) 2.5 % (0.9-2.9); HEMOGLOBIN 8.7 g/dL (12.0-16.0); LYMPHOCYTES # (AUTO) 1.6 X10^3/uL (1.3-2.9); LYMPHOCYTES % (AUTO) 13.5 % (21.0-51.0); MEAN CORPUSCULAR HEMOGLOBIN 30.9 pg (27.0-34.0); MEAN CORPUSCULAR HGB CONC 33.6 g/dL (33.0-35.0); MEAN CORPUSCULAR VOLUME 91.9 fL (80.0-100.0); MEAN PLATELET VOLUME 6.8 fL (7.4-11.0); MONOCYTES # (AUTO) 1.1 x10^3/uL (0.3-0.8); MONOCYTES % (AUTO) 9.8 % (0.0-13.0); NEUTROPHILS # (AUTO) 8.6 x10^3/uL (2.2-4.8); NEUTROPHILS % (AUTO) 73.7 % (42.0-75.0); PLATELET COUNT 485 X10^3/uL (150.0-450.0); RED BLOOD COUNT 2.83 X10^6/uL (3.5-5.4); RED CELL DISTRIBUTION WIDTH 13.8 % (11.6-16.5); WHITE BLOOD COUNT 11.7 X10^3/uL (3.6-10.0)
[2018-03-12] MEDS: NS 1000 ML 1,000 ML IV SCH ×3 (05:18→17:03)
[2018-03-12 05:58] LABS: CALCIUM 7.9 mg/dL (8.5-10.1); CARBON DIOXIDE 25.9 mmol/L (21-32); COR CA(FOR HYPOALB) 9.5 mg/dL (8.5-10.1); CREATININE 1.31 mg/dL (0.55-1.02); TOTAL PROTEIN 6.1 g/dL (6.4-8.2)
[2018-03-12] MEDS ORDERED: ZOLOFT PO ONE (07:32)
[2018-03-12] MEDS: SYNTHROID 50 mcg TAB PO SCH (07:37)
[2018-03-12] MEDS: CRESTOR TAB 10 MG PO SCH (08:56)
[2018-03-12] MEDS: SINGULAIR TAB 10 MG PO SCH (08:56)
[2018-03-12] MEDS: EVISTA PO SCH (08:57)
[2018-03-12] MEDS: PriLOSEC PO SCH (08:57)
[2018-03-12] MEDS: DIOVAN TAB 160 MG PO SCH (08:57)
[2018-03-12] MEDS: ALDACTONE TAB 25 MG PO SCH (08:57)
[2018-03-12] MEDS: LOVENOX INJ 40 MG SYR SC SCH (08:57)
[2018-03-12] MEDS: FOLTX PO SCH (08:57)
[2018-03-12] MEDS: COREG TAB 6.25 MG PO SCH ×2 (08:57→21:15)
[2018-03-12] MEDS: LYRICA CAP 50 MG PO SCH ×2 (08:57→21:15)
[2018-03-12] MEDS: ZOLOFT PO SCH (08:58)
[2018-03-12] MEDS: BUTT CREAM (COMPOUND) TOP SCH ×4 (08:59→22:26)
[2018-03-12] MEDS: NYSTATIN POWDER TOP SCH ×2 (08:59→22:26)
[2018-03-12] MEDS: ZOFRAN INJ 4 MG VIAL IVP PRN (09:06)
--- NOTE | 2018-03-12 16:04 | RAD ---
Examination: KUB, 2 images History: Distention, CHF, hypertension Findings: There is moderate gaseous dilatation of scattered segments of small bowel and colon. A norm al amount of gas is present in the rectosigmoid. There is increased hazy density over the entire abdo men flanks and pelvis. The liver margin is not well defined. Impression: Nonobstructive intestinal distention. Ascites. Reported By:
[2018-03-12] MEDS: ZOFRAN TAB 4 MG PO SCH (17:04)
[2018-03-12] MEDS: PHENERGAN INJ 25 MG IV PRN ×2 (18:11→22:27)
[2018-03-12] MEDS: KLONOPIN TAB 0.5 MG PO SCH (21:15)
[2018-03-12] MEDS: ZANTAC PO SCH (21:15)
[2018-03-13] MEDS: NS 1000 ML 1,000 ML IV SCH ×3 (04:33→18:05)
[2018-03-13] MEDS: ZOFRAN TAB 4 MG PO SCH ×3 (06:05→17:08)
[2018-03-13 06:08] LABS: BASOPHILS # (AUTO) 0.1 X10^3/uL (0.0-0.1); BASOPHILS % (AUTO) 0.5 % (0.2-1.0); EOSINOPHILS # (AUTO) 0.2 x10^3/uL (0.0-0.2); EOSINOPHILS % (AUTO) 1.6 % (0.9-2.9); HEMATOCRIT 27.7 % (36.0-47.0); HEMOGLOBIN 9.3 g/dL (12.0-16.0); LYMPHOCYTES # (AUTO) 1.4 X10^3/uL (1.3-2.9); LYMPHOCYTES % (AUTO) 11.7 % (21.0-51.0); MEAN CORPUSCULAR HEMOGLOBIN 30.7 pg (27.0-34.0); MEAN CORPUSCULAR HGB CONC 33.5 g/dL (33.0-35.0); MEAN CORPUSCULAR VOLUME 91.7 fL (80.0-100.0); MEAN PLATELET VOLUME 7.1 fL (7.4-11.0); MONOCYTES # (AUTO) 1.2 x10^3/uL (0.3-0.8); MONOCYTES % (AUTO) 10.1 % (0.0-13.0); NEUTROPHILS # (AUTO) 9.4 x10^3/uL (2.2-4.8); NEUTROPHILS % (AUTO) 76.1 % (42.0-75.0); PLATELET COUNT 546 X10^3/uL (150.0-450.0); RED BLOOD COUNT 3.02 X10^6/uL (3.5-5.4); RED CELL DISTRIBUTION WIDTH 13.7 % (11.6-16.5); WHITE BLOOD COUNT 12.4 X10^3/uL (3.6-10.0)
[2018-03-13 06:25] LABS: CALCIUM 7.8 mg/dL (8.5-10.1); CARBON DIOXIDE 22.8 mmol/L (21-32); COR CA(FOR HYPOALB) 9.4 mg/dL (8.5-10.1); CREATININE 1.29 mg/dL (0.55-1.02); TOTAL PROTEIN 6.2 g/dL (6.4-8.2)
[2018-03-13] MEDS: SYNTHROID 50 mcg TAB PO SCH (06:30)
[2018-03-13] MEDS ORDERED: ZOLOFT PO ONE (07:19)
[2018-03-13] MEDS: LYRICA CAP 50 MG PO SCH ×2 (08:32→21:07)
[2018-03-13] MEDS: EVISTA PO SCH (08:32)
[2018-03-13] MEDS: PriLOSEC PO SCH (08:32)
[2018-03-13] MEDS: DIOVAN TAB 160 MG PO SCH (08:32)
[2018-03-13] MEDS: FOLTX PO SCH (08:32)
[2018-03-13] MEDS: BUTT CREAM (COMPOUND) TOP SCH ×4 (08:33→20:41)
[2018-03-13] MEDS: SINGULAIR TAB 10 MG PO SCH (08:33)
[2018-03-13] MEDS: ALDACTONE TAB 25 MG PO SCH (08:33)
[2018-03-13] MEDS: COREG TAB 6.25 MG PO SCH ×2 (08:33→21:06)
[2018-03-13] MEDS: CRESTOR TAB 10 MG PO SCH (08:33)
[2018-03-13] MEDS: LOVENOX INJ 40 MG SYR SC SCH (08:34)
[2018-03-13] MEDS: NYSTATIN POWDER TOP SCH ×2 (08:34→20:41)
[2018-03-13] MEDS: ZOLOFT PO SCH (08:35)
[2018-03-13] MEDS: ZOFRAN INJ 4 MG VIAL IVP PRN ×2 (10:26→23:48)
--- NOTE | 2018-03-13 15:29 | DR.PROGNOT ---
Hospital Progress Notes - Progress Note for Day of: Progress Note Date: 03/13/18 - Chief Complaint Chief Complaint: moderate abdominal distention , nausea , poor oral intake. and weakness .. abdominal CT was D/W the radiologist , it is strongly suspicious for carcinomatosis .although ascitis was negative for malignancy . improved with enemas . abdominal xray : no obstuction . - Past Medical Family Social History Past Med/Fam/Surg Hx: No changes since H&P Allergies: Allergies aspirin Allergy (Verified 03/10/18 14:19) fluoxetine [From Prozac] Allergy (Verified 03/10/18 14:37) tramadol Allergy (Verified 03/10/18 14:19) FAMILY DOES NOT WANT PT. TO HAVE. - Review Of Systems ROS: No change since H&P - Vital Signs Vital Signs: Temperature 97.8 F Pulse Rate [Left Brachial] 79 Pulse Rate 94 Respiratory Rate 18 Blood Pressure [Left Arm] 192/76 Blood Pressure [Right Arm] 184/71 Blood Pressure 165/95 O2 Sat by Pulse Oximetry 96 - Physical Exam Oriented: Normal Eyes: Normal Ear: Normal Nose: Normal Throat: Normal Respiratory: Right, Left, Diminished Cardiovascular: negative: S3, S4, Murmur : Normal GI:Auscultation: Normal GI:Palpation: Normal GI: Tenderness: Diffuse, Moderate, Other (distended abdomen with moderate ascitis ). negative: Rebound, Guarding, Rigidity Skin: Normal Musculoskeletal: Back:Thoracic, Back:Lumbar, Tender Psychiatric: Normal Mood Description: Calm Affect: Normal Speech Pattern: Clear, Appropriate - Laboratory and Diagnostics Result Diagrams: 03/13/18 05:05 03/13/18 05:05 Labs: Laboratory WBC 12.4 X10^3/uL (3.6-10.0) H 03/13/18 05:05 RBC 3.02 X10^6/uL (3.5-5.4) L 03/13/18 05:05 Hgb 9.3 g/dL (12.0-16.0) L 03/13/18 05:05 Hct 27.7 % (36.0-47.0) L 03/13/18 05:05 MCV 91.7 fL (80.0-100.0) 03/13/18 05:05 MCH 30.7 pg (27.0-34.0) 03/13/18 05:05 MCHC 33.5 g/dL (33.0-35.0) 03/13/18 05:05 RDW 13.7 % (11.6-16.5) 03/13/18 05:05 Plt Count 546 X10^3/uL (150.0-450.0) H 03/13/18 05:05 MPV 7.1 fL (7.4-11.0) L 03/13/18 05:05 Neut % (Auto) 76.1 % (42.0-75.0) H 03/13/18 05:05 Lymph % (Auto) 11.7 % (21.0-51.0) L 03/13/18 05:05 [place] % (Auto) 10.1 % (0.0-13.0) 03/13/18 05:05 Eos % (Auto) 1.6 % (0.9-2.9) 03/13/18 05:05 Baso % (Auto) 0.5 % (0.2-1.0) 03/13/18 05:05 Neut # (Auto) 9.4 x10^3/uL (2.2-4.8) H 03/13/18 05:05 Lymph # (Auto) 1.4 X10^3/uL (1.3-2.9) 03/13/18 05:05 [place] # (Auto) 1.2 x10^3/uL (0.3-0.8) H 03/13/18 05:05 Eos # (Auto) 0.2 x10^3/uL (0.0-0.2) 03/13/18 05:05 Baso # (Auto) 0.1 X10^3/uL (0.0-0.1) 03/13/18 05:05 Absolute Nucleated RBC 0.0 /100WBC 03/13/18 05:05 INR Target Range - 03/11/18 05:17 INR 1.16 (0.8-1.3) 03/11/18 05:17 APTT 33.3 SECONDS (22.9-36.5) 03/11/18 05:17 PTT Comment - 03/11/18 05:17 D-Dimer 4220 ng/mL (0-400) H* 03/10/18 10:27 Sodium 135 mmol/L (136-145) L 03/13/18 05:05 Corrected Sodium 135 mmol/L (136-145) L 03/13/18 05:05 Potassium 4.7 mmol/L (3.5-5.1) 03/13/18 05:05 Chloride 105 mmol/L (98-107) 03/13/18 05:05 Carbon Dioxide 22.8 mmol/L (21-32) 03/13/18 05:05 BUN 20 mg/dL (7-18) H 03/13/18 05:05 Creatinine 1.29 mg/dL (0.55-1.02) H 03/13/18 05:05 Est GFR (MDRD) Af Amer 50 (>60) L 03/13/18 05:05 Est GFR (MDRD) Non-Af 42 (>60) L 03/13/18 05:05 Glucose 113 mg/dL (65-99) H 03/13/18 05:05 Calcium 7.8 mg/dL (8.5-10.1) L 03/13/18 05:05 Corrected Calcium 9.4 mg/dL (8.5-10.1) 03/13/18 05:05 Total Bilirubin 0.10 mg/dL (0.2-1.0) L 03/13/18 05:05 AST 38 Units/L (15-37) H 03/13/18 05:05 ALT 19 Units/L (12-78) 03/13/18 05:05 Alkaline Phosphatase 55 Units/L (46-116) 03/13/18 05:05 C-Reactive Protein 109.10 mg/L (0-3.0) H 03/10/18 10:27 Total Protein 6.2 g/dL (6.4-8.2) L 03/13/18 05:05 Albumin 2.0 g/dL (3.4-5.0) L 03/13/18 05:05 Globulin 4.2 g/dL (2.5-4.5) 03/13/18 05:05 Albumin/Globulin Ratio 0.5 Ratio (1.1-2.1) L 03/13/18 05:05 - Assessment and Plan 1: 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 mild associated partial bowel obstruction . no need for paracentesis now . anemia and CKD . awaiting CEA level . would suggest Hospice placement . - Problem Patient Problems: Patient Problems Dehydration (Acute) E86.0 Ascites (Acute) R18.8
[2018-03-13] MEDS ORDERED: MYLICON TAB 80 MG CHEW PO PRN (15:44)
--- NOTE | 2018-03-13 17:03 | PCM.PROG ---
Progress Note - Progress Note for Day of Date of Exam: 03/11/18 - Subjective Subjective: WAS ADMITTED FOR DEHYDRATION, SHORTNESS OF BREATH, AND ABDOMINAL PAIN AND DISTENTION. SCANS REVEALED MODERATED ASCITES. PATIENT HAS A HISTORY OF COLON CANCER WITH POSSIBLE REOCCURANCE. TODAY, SHE IS ALERT AND ORIENTED, LYING IN BED ON MORNING ROUNDS. SHE CONTINUES WITH COMPLAINTS OF ABDOMINAL PAIN AND SWELLING. SHE ALSO CONTINUES WITH GENERALIZED WEAKNESS AND SHORTNESS OF BREATH. ON EXAMINATION, HEART IS REGULAR IN RATE AND RHYTHM. BILATERAL LUNGS ARE NOTED WITH DIMINISHED LUNG SOUNDS THROUGHOUT. ABDOMEN IS NOTED TO BE DISTENDED WITH MILD TENDERNESS TO THE LLQ. HYPOACTIVE BOWEL SOUNDS NOTED IN ALL QUADRANTS. HER VITALS TODAY ARE 97.9-84-18-93%-156/70. LABS WERE OBTAINED. ABNORMAL LAB VALUES INCLUDE THE FOLLOWING: WBC 11.2, RBC 2.95, HGB 9.2 , HCT 27.1, PLT COUNT 462, BUN 25, CREATININE 1.43, GLUCOSE 104, CALCIUM 8.2, TOTAL BILI 0.10, AST 40, TOTAL PROTEIN 6.2, ALBUMIN 2.0. AN ABDOMINAL ULTRASOUND WAS OBTAINED TODAY AND CONTINUED TO REVEAL A MODERATE AMOUNT OF ASCITES. A VQ DCAN WAS OBTAINED AND WAS NEGATIVE FOR PULMONARY EMBOLUS. TODAY, WE WILL CONTINUE WITH CURRENT PLAN OF CARE. WILL CONSULT WITH PATIENT FOR POSSIBLE PARACENTESIS. OTHERWISE, WE WILL FOLLOW UP WITH AM LABS AND CONTINUE TO MONITOR PATIENT. - Past Medical Family Social History Past Med/Fam/Surg Hx: No changes since H&P Allergies: Allergies aspirin Allergy (Verified 03/10/18 14:19) fluoxetine [From Prozac] Allergy (Verified 03/10/18 14:37) tramadol Allergy (Verified 03/10/18 14:19) FAMILY DOES NOT WANT PT. TO HAVE. - Review of Systems ROS: No change since H&P - Vital Signs and I&O's Vital Signs: Temperature 98.6 F Pulse Rate [Left Brachial] 80 Pulse Rate 94 Respiratory Rate 20 Blood Pressure [Left Arm] 189/79 Blood Pressure [Right Arm] 184/71 Blood Pressure 165/95 O2 Sat by Pulse Oximetry 97 Intake and Output: Intake & Output 03/11/18 03/12/18 03/13/18 03/14/18 11:59 11:59 11:59 11:59 Intake Total 1250 / 1250 960 / 960 1840 / 1840 860 / 860 Balance 1250 / 1250 960 / 960 1840 / 1840 860 / 860 - Physical Exam Oriented: Normal Eyes: Normal Ear: Normal Nose: Normal Throat: Normal Respiratory: Right, Left, Diminished Cardiovascular: negative: S3, S4, Murmur : Normal Auscultation: Bowel Sounds: Normal, Decreased Palpation: Normal Tenderness: Diffuse, LLQ, Other (distended abdomen with moderate ascitis ). negative: Rebound, Guarding, Rigidity Skin: Normal Musculoskeletal: Back:Thoracic, Back:Lumbar, Tender Psychiatric: Normal Mood Description: Calm Affect: Normal Speech Pattern: Clear, Appropriate - Laboratory and Diagnostics Result Diagrams: 03/13/18 05:05 03/13/18 05:05 Labs: Laboratory WBC 12.4 X10^3/uL (3.6-10.0) H 03/13/18 05:05 RBC 3.02 X10^6/uL (3.5-5.4) L 03/13/18 05:05 Hgb 9.3 g/dL (12.0-16.0) L 03/13/18 05:05 Hct 27.7 % (36.0-47.0) L 03/13/18 05:05 MCV 91.7 fL (80.0-100.0) 03/13/18 05:05 MCH 30.7 pg (27.0-34.0) 03/13/18 05:05 MCHC 33.5 g/dL (33.0-35.0) 03/13/18 05:05 RDW 13.7 % (11.6-16.5) 03/13/18 05:05 Plt Count 546 X10^3/uL (150.0-450.0) H 03/13/18 05:05 MPV 7.1 fL (7.4-11.0) L 03/13/18 05:05 Neut % (Auto) 76.1 % (42.0-75.0) H 03/13/18 05:05 Lymph % (Auto) 11.7 % (21.0-51.0) L 03/13/18 05:05 [place] % (Auto) 10.1 % (0.0-13.0) 03/13/18 05:05 Eos % (Auto) 1.6 % (0.9-2.9) 03/13/18 05:05 Baso % (Auto) 0.5 % (0.2-1.0) 03/13/18 05:05 Neut # (Auto) 9.4 x10^3/uL (2.2-4.8) H 03/13/18 05:05 Lymph # (Auto) 1.4 X10^3/uL (1.3-2.9) 03/13/18 05:05 [place] # (Auto) 1.2 x10^3/uL (0.3-0.8) H 03/13/18 05:05 Eos # (Auto) 0.2 x10^3/uL (0.0-0.2) 03/13/18 05:05 Baso # (Auto) 0.1 X10^3/uL (0.0-0.1) 03/13/18 05:05 Absolute Nucleated RBC 0.0 /100WBC 03/13/18 05:05 INR Target Range - 03/11/18 05:17 INR 1.16 (0.8-1.3) 03/11/18 05:17 APTT 33.3 SECONDS (22.9-36.5) 03/11/18 05:17 PTT Comment - 03/11/18 05:17 D-Dimer 4220 ng/mL (0-400) H* 03/10/18 10:27 Sodium 135 mmol/L (136-145) L 03/13/18 05:05 Corrected Sodium 135 mmol/L (136-145) L 03/13/18 05:05 Potassium 4.7 mmol/L (3.5-5.1) 03/13/18 05:05 Chloride 105 mmol/L (98-107) 03/13/18 05:05 Carbon Dioxide 22.8 mmol/L (21-32) 03/13/18 05:05 BUN 20 mg/dL (7-18) H 03/13/18 05:05 Creatinine 1.29 mg/dL (0.55-1.02) H 03/13/18 05:05 Est GFR (MDRD) Af Amer 50 (>60) L 03/13/18 05:05 Est GFR (MDRD) Non-Af 42 (>60) L 03/13/18 05:05 Glucose 113 mg/dL (65-99) H 03/13/18 05:05 Calcium 7.8 mg/dL (8.5-10.1) L 03/13/18 05:05 Corrected Calcium 9.4 mg/dL (8.5-10.1) 03/13/18 05:05 Total Bilirubin 0.10 mg/dL (0.2-1.0) L 03/13/18 05:05 AST 38 Units/L (15-37) H 03/13/18 05:05 ALT 19 Units/L (12-78) 03/13/18 05:05 Alkaline Phosphatase 55 Units/L (46-116) 03/13/18 05:05 C-Reactive Protein 109.10 mg/L (0-3.0) H 03/10/18 10:27 Total Protein 6.2 g/dL (6.4-8.2) L 03/13/18 05:05 Albumin 2.0 g/dL (3.4-5.0) L 03/13/18 05:05 Globulin 4.2 g/dL (2.5-4.5) 03/13/18 05:05 Albumin/Globulin Ratio 0.5 Ratio (1.1-2.1) L 03/13/18 05:05 - Plan (1) Ascites Status: Acute Qualifiers: Ascites type: malignant Qualified Code(s): R18.0 - Malignant ascites Plan: surgical consult, continue to monitor (2) Dehydration Status: Acute Plan: normal saline at 80ml/hr, continue to monitor
[2018-03-13] MEDS: PHENERGAN INJ 25 MG IV PRN (20:41)
[2018-03-13] MEDS: PEPCID 20 MG IV PREMIX* 20 MG/50 ML BAG IV SCH (20:41)
[2018-03-13] MEDS ORDERED: PEPCID 20 MG IV PREMIX* 20 MG/50 ML BAG IV SCH (21:00)
[2018-03-13] MEDS: KLONOPIN TAB 0.5 MG PO SCH (21:06)
[2018-03-14] MEDS: ZOFRAN TAB 4 MG PO SCH ×3 (05:36→16:46)
[2018-03-14 06:00] LABS: BASOPHILS # (AUTO) 0.1 X10^3/uL (0.0-0.1); BASOPHILS % (AUTO) 0.5 % (0.2-1.0); EOSINOPHILS # (AUTO) 0.1 x10^3/uL (0.0-0.2); EOSINOPHILS % (AUTO) 0.8 % (0.9-2.9); HEMATOCRIT 27.3 % (36.0-47.0); HEMOGLOBIN 9.4 g/dL (12.0-16.0); LYMPHOCYTES # (AUTO) 1.5 X10^3/uL (1.3-2.9); LYMPHOCYTES % (AUTO) 11.5 % (21.0-51.0); MEAN CORPUSCULAR HGB CONC 34.4 g/dL (33.0-35.0); MEAN CORPUSCULAR VOLUME 90.1 fL (80.0-100.0); MEAN PLATELET VOLUME 7.4 fL (7.4-11.0); MONOCYTES # (AUTO) 1.2 x10^3/uL (0.3-0.8); MONOCYTES % (AUTO) 9.5 % (0.0-13.0); NEUTROPHILS # (AUTO) 9.9 x10^3/uL (2.2-4.8); NEUTROPHILS % (AUTO) 77.7 % (42.0-75.0); PLATELET COUNT 511 X10^3/uL (150.0-450.0); RED BLOOD COUNT 3.03 X10^6/uL (3.5-5.4); RED CELL DISTRIBUTION WIDTH 13.9 % (11.6-16.5); WHITE BLOOD COUNT 12.8 X10^3/uL (3.6-10.0)
[2018-03-14 06:42] LABS: ALANINE AMINOTRANSFERASE 19 Units/L (12-78); ALBUMIN 1.8 g/dL (3.4-5.0); ALKALINE PHOSPHATASE 48 Units/L (46-116); ASPARTATE AMINO TRANSFERASE 49 Units/L (15-37); BLOOD UREA NITROGEN 18 mg/dL (7-18); CALCIUM 8.1 mg/dL (8.5-10.1); CARBON DIOXIDE 21.9 mmol/L (21-32); CHLORIDE 104 mmol/L (98-107); COR CA(FOR HYPOALB) 9.9 mg/dL (8.5-10.1); CREATININE 1.25 mg/dL (0.55-1.02); SODIUM 133 mmol/L (136-145); TOTAL PROTEIN 6.2 g/dL (6.4-8.2); eGFR NON BLACK RACES 43 (>60)
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
[2018-03-14] MEDS ORDERED: ZOLOFT PO ONE (08:31)
[2018-03-14] MEDS: SINGULAIR TAB 10 MG PO SCH (08:55)
[2018-03-14] MEDS: CRESTOR TAB 10 MG PO SCH (08:55)
[2018-03-14] MEDS: FOLTX PO SCH (08:56)
[2018-03-14] MEDS: SYNTHROID 50 mcg TAB PO SCH (08:56)
[2018-03-14] MEDS: PriLOSEC PO SCH (08:56)
[2018-03-14] MEDS: DIOVAN TAB 160 MG PO SCH (08:56)
[2018-03-14] MEDS: EVISTA PO SCH (08:56)
[2018-03-14] MEDS: ALDACTONE TAB 25 MG PO SCH (08:56)
[2018-03-14] MEDS: LYRICA CAP 50 MG PO SCH ×2 (08:56→21:28)
[2018-03-14] MEDS: COREG TAB 6.25 MG PO SCH ×2 (08:57→21:19)
[2018-03-14] MEDS: ZOLOFT PO SCH (08:57)
[2018-03-14] MEDS: LOVENOX INJ 40 MG SYR SC SCH (09:00)
[2018-03-14] MEDS: NYSTATIN POWDER TOP SCH ×2 (09:01→21:20)
--- NOTE | 2018-03-14 09:02 | PCM.PROG ---
Progress Note - Progress Note for Day of Date of Exam: 03/13/18 - Subjective Subjective: WAS ADMITTED FOR DEHYDRATION, SHORTNESS OF BREATH, AND ABDOMINAL PAIN AND DISTENTION. SCANS REVEALED MODERATED ASCITES. PATIENT HAS A HISTORY OF COLON CANCER WITH POSSIBLE REOCCURANCE. TODAY, SHE IS ALERT AND ORIENTED, LYING IN BED ON MORNING ROUNDS. SHE CONTINUES WITH COMPLAINTS OF ABDOMINAL PAIN AND SWELLING. SHE ALSO CONTINUES WITH GENERALIZED WEAKNESS AND SHORTNESS OF BREATH. PT CO NAUSEA AND POOR PO INTAKE, PT HAD BEEN ON MYLICON, PPI THERAPY AND NAUSEA CONTROL, PT CURRENTLY REFUSING PAIN MEDICATION. DISCUSSED WITH FAMILY POSSIBILITY OF OBSTRUCTION, PT CURRENTLY NOT WANTING AGRESSIVE CARE. PT'S GRANDAUGHER AT BEDSIDE ASKING FOR "PLAN FOR NON AGRESSIVE TREATMENT" DISCUSSED OPTIONS, WILL CONSULT CASE MANAGEMENT AND PCP, DR LLAMAS AND CONSULTING MD, DR KERN - Past Medical Family Social History Past Med/Fam/Surg Hx: No changes since H&P Allergies: Allergies aspirin Allergy (Verified 03/10/18 14:19) fluoxetine [From Prozac] Allergy (Verified 03/10/18 14:37) tramadol Allergy (Verified 03/10/18 14:19) FAMILY DOES NOT WANT PT. TO HAVE. - Review of Systems ROS: No change since H&P - Vital Signs and I&O's Vital Signs: Temperature 98.5 F Pulse Rate [Left Brachial] 86 Pulse Rate 94 Respiratory Rate 18 Blood Pressure [Left Arm] 171/75 Blood Pressure [Right Arm] 184/71 Blood Pressure 165/95 O2 Sat by Pulse Oximetry 96 Intake and Output: Intake & Output 03/11/18 03/12/18 03/13/18 03/14/18 11:59 11:59 11:59 11:59 Intake Total 1250 / 1250 960 / 960 1840 / 1840 910 / 910 Balance 1250 / 1250 960 / 960 1840 / 1840 910 / 910 - Physical Exam Oriented: Normal Eyes: Normal Ear: Normal Nose: Normal Throat: Normal Respiratory: Right, Left, Diminished : Normal Auscultation: Bowel Sounds: Normal, Decreased Tenderness: Diffuse, LLQ, Other (distended abdomen with moderate ascitis ). negative: Rebound, Guarding, Rigidity Skin: Normal Musculoskeletal: Back:Thoracic, Back:Lumbar, Tender Psychiatric: Depression Mood Description: Calm Affect: Normal Speech Pattern: Clear, Appropriate - Laboratory and Diagnostics Result Diagrams: 03/14/18 05:20 03/14/18 05:20 Labs: Laboratory WBC 12.8 X10^3/uL (3.6-10.0) H 03/14/18 05:20 RBC 3.03 X10^6/uL (3.5-5.4) L 03/14/18 05:20 Hgb 9.4 g/dL (12.0-16.0) L 03/14/18 05:20 Hct 27.3 % (36.0-47.0) L 03/14/18 05:20 MCV 90.1 fL (80.0-100.0) 03/14/18 05:20 MCH 31.0 pg (27.0-34.0) 03/14/18 05:20 MCHC 34.4 g/dL (33.0-35.0) 03/14/18 05:20 RDW 13.9 % (11.6-16.5) 03/14/18 05:20 Plt Count 511 X10^3/uL (150.0-450.0) H 03/14/18 05:20 MPV 7.4 fL (7.4-11.0) 03/14/18 05:20 Neut % (Auto) 77.7 % (42.0-75.0) H 03/14/18 05:20 Lymph % (Auto) 11.5 % (21.0-51.0) L 03/14/18 05:20 Davis % (Auto) 9.5 % (0.0-13.0) 03/14/18 05:20 Eos % (Auto) 0.8 % (0.9-2.9) L 03/14/18 05:20 Baso % (Auto) 0.5 % (0.2-1.0) 03/14/18 05:20 Neut # (Auto) 9.9 x10^3/uL (2.2-4.8) H 03/14/18 05:20 Lymph # (Auto) 1.5 X10^3/uL (1.3-2.9) 03/14/18 05:20 Davis # (Auto) 1.2 x10^3/uL (0.3-0.8) H 03/14/18 05:20 Eos # (Auto) 0.1 x10^3/uL (0.0-0.2) 03/14/18 05:20 Baso # (Auto) 0.1 X10^3/uL (0.0-0.1) 03/14/18 05:20 Absolute Nucleated RBC 0.0 /100WBC 03/14/18 05:20 INR Target Range - 03/11/18 05:17 INR 1.16 (0.8-1.3) 03/11/18 05:17 APTT 33.3 SECONDS (22.9-36.5) 03/11/18 05:17 PTT Comment - 03/11/18 05:17 D-Dimer 4220 ng/mL (0-400) H* 03/10/18 10:27 Sodium 133 mmol/L (136-145) L 03/14/18 05:20 Corrected Sodium TNP 03/14/18 05:20 Potassium 5.1 mmol/L (3.5-5.1) 03/14/18 05:20 Chloride 104 mmol/L (98-107) 03/14/18 05:20 Carbon Dioxide 21.9 mmol/L (21-32) 03/14/18 05:20 BUN 18 mg/dL (7-18) 03/14/18 05:20 Creatinine 1.25 mg/dL (0.55-1.02) H 03/14/18 05:20 Est GFR (MDRD) Af Amer 52 (>60) L 03/14/18 05:20 Est GFR (MDRD) Non-Af 43 (>60) L 03/14/18 05:20 Glucose 103 mg/dL (65-99) H 03/14/18 05:20 Calcium 8.1 mg/dL (8.5-10.1) L 03/14/18 05:20 Corrected Calcium 9.9 mg/dL (8.5-10.1) 03/14/18 05:20 Total Bilirubin 0.20 mg/dL (0.2-1.0) 03/14/18 05:20 AST 49 Units/L (15-37) H 03/14/18 05:20 ALT 19 Units/L (12-78) 03/14/18 05:20 Alkaline Phosphatase 48 Units/L (46-116) 03/14/18 05:20 C-Reactive Protein 109.10 mg/L (0-3.0) H 03/10/18 10:27 Total Protein 6.2 g/dL (6.4-8.2) L 03/14/18 05:20 Albumin 1.8 g/dL (3.4-5.0) L 03/14/18 05:20 Globulin 4.4 g/dL (2.5-4.5) 03/14/18 05:20 Albumin/Globulin Ratio 0.4 Ratio (1.1-2.1) L 03/14/18 05:20 - Plan (1) Ascites Status: Acute Plan: PAIN CONTROL, NAUSEA CONTROL. LIMIT PO INTAKE TOLERATED. CONTINUE CONSULT DR KERN, CONSULT CASE MANAGEMENT. I & OS, RESP CARE, SUPPLEMENTAL O2 (2) Abdominal pain Status: Acute (3) Metastatic colon cancer in female Status: Acute
[2018-03-14] MEDS: BUTT CREAM (COMPOUND) TOP SCH ×4 (09:04→21:19)
[2018-03-14] MEDS: PHENERGAN INJ 25 MG IV PRN (14:29)
[2018-03-14] MEDS: ZOFRAN INJ 4 MG VIAL IVP PRN (16:08)
[2018-03-14] MEDS: KLONOPIN TAB 0.5 MG PO SCH (21:19)
[2018-03-14] MEDS: PEPCID 20 MG IV PREMIX* 20 MG/50 ML BAG IV SCH (21:29)
[2018-03-15 06:00] LABS: BASOPHILS # (AUTO) 0.1 X10^3/uL (0.0-0.1); BASOPHILS % (AUTO) 0.6 % (0.2-1.0); EOSINOPHILS # (AUTO) 0.1 x10^3/uL (0.0-0.2); EOSINOPHILS % (AUTO) 0.4 % (0.9-2.9); HEMATOCRIT 28.8 % (36.0-47.0); HEMOGLOBIN 9.5 g/dL (12.0-16.0); LYMPHOCYTES # (AUTO) 1.5 X10^3/uL (1.3-2.9); LYMPHOCYTES % (AUTO) 10.6 % (21.0-51.0); MEAN CORPUSCULAR HGB CONC 33.2 g/dL (33.0-35.0); MEAN CORPUSCULAR VOLUME 90.4 fL (80.0-100.0); MEAN PLATELET VOLUME 6.7 fL (7.4-11.0); MONOCYTES # (AUTO) 1.4 x10^3/uL (0.3-0.8); NEUTROPHILS % (AUTO) 78.4 % (42.0-75.0); PLATELET COUNT 601 X10^3/uL (150.0-450.0); RED BLOOD COUNT 3.18 X10^6/uL (3.5-5.4); RED CELL DISTRIBUTION WIDTH 13.8 % (11.6-16.5)
[2018-03-15] MEDS: ZOFRAN TAB 4 MG PO SCH ×2 (06:15→11:58)
[2018-03-15] MEDS: SYNTHROID 50 mcg TAB PO SCH (06:15)
[2018-03-15 06:26] LABS: ALANINE AMINOTRANSFERASE 21 Units/L (12-78); ALBUMIN 1.9 g/dL (3.4-5.0); ALKALINE PHOSPHATASE 47 Units/L (46-116); ASPARTATE AMINO TRANSFERASE 41 Units/L (15-37); BLOOD UREA NITROGEN 23 mg/dL (7-18); CALCIUM 8.2 mg/dL (8.5-10.1); CARBON DIOXIDE 22.1 mmol/L (21-32); CHLORIDE 104 mmol/L (98-107); COR CA(FOR HYPOALB) 9.9 mg/dL (8.5-10.1); CREATININE 1.37 mg/dL (0.55-1.02); SODIUM 135 mmol/L (136-145); TOTAL PROTEIN 6.3 g/dL (6.4-8.2); eGFR NON BLACK RACES 39 (>60)
[2018-03-15 06:42] LABS: PLATELET MORPHOLOGY COMMENT NORMAL (NORMAL)
[2018-03-15] MEDS ORDERED: ZOLOFT PO ONE (07:46)
[2018-03-15] MEDS: CRESTOR TAB 10 MG PO SCH (09:01)
[2018-03-15] MEDS: FOLTX PO SCH (09:01)
[2018-03-15] MEDS: LYRICA CAP 50 MG PO SCH (09:02)
[2018-03-15] MEDS: ALDACTONE TAB 25 MG PO SCH (09:02)
[2018-03-15] MEDS: LOVENOX INJ 40 MG SYR SC SCH (09:03)
[2018-03-15] MEDS: DIOVAN TAB 160 MG PO SCH (09:03)
[2018-03-15] MEDS: EVISTA PO SCH (09:03)
[2018-03-15] MEDS: COREG TAB 6.25 MG PO SCH (09:03)
[2018-03-15] MEDS: SINGULAIR TAB 10 MG PO SCH (09:03)
[2018-03-15] MEDS: PriLOSEC PO SCH (09:03)
[2018-03-15] MEDS ORDERED: ZOFRAN INJ 4 MG VIAL 16 MG, ATIVAN INJ 2 MG VIAL 1 MG, DECADRON INJ 10 MG in NS 50 ML I... IV ONE (09:36)
[2018-03-15] MEDS: ZOLOFT PO SCH (10:02)
[2018-03-15] MEDS: NYSTATIN POWDER TOP SCH (10:02)
[2018-03-15] MEDS: BUTT CREAM (COMPOUND) TOP SCH ×2 (10:02→12:04)
[2018-03-15] MEDS ORDERED: NS 100 ML IV 100 ML IV ONE (10:07)
[2018-03-15] MEDS ORDERED: DECADRON INJ PRESERVATIVE-FREE IM ONE (10:08)
[2018-03-15] MEDS ORDERED: ATIVAN INJ 2 MG VIAL ONE (10:08)
[2018-03-15 12:04] VITALS: BP 160/70
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
== END 2018-03-15 14:30 | disposition hospice, home (50) | DRG 641 ==
LOC: ER 09:40 → MED/SURG 13:48
PROVIDERS: ADMIT Internal Medicine; ATTEND Internal Medicine
DX: R26.89 Other abnormalities of gait and mobility; D64.89 Other specified anemias; C79.89 Secondary malignant neoplasm of other specified sites; R10.84 Generalized abdominal pain; R06.02 Shortness of breath; E03.8 Other specified hypothyroidism; K56.690 Other partial intestinal obstruction; R29.6 Repeated falls; E86.0 Dehydration; Z85.038 Personal history of other malignant neoplasm of large intestine; R79.82 Elevated C-reactive protein (CRP); R18.0 Malignant ascites; E78.2 Mixed hyperlipidemia; N18.9 Chronic kidney disease, unspecified; R41.82 Altered mental status, unspecified; F32.89 Other specified depressive episodes
CPT/HCPCS: 36415; 70450; 71010; 71045; 74000; 74018; 74176; 76700; 78582; 80053; 82378; 85025; 85378; 85610; 85730; 86140; 94760; 96365; 96367; 97163; 97167; 99231; 99283; 99284; A4222; A9540; A9567; S0028; J1100; J1650; J2060; J2405; J2550; J7030; J7050; S0181